=== PATIENT | male | born 1940 | race Caucasian/White ===

== ENCOUNTER 2017-09-23 13:06 | Emergency (ER) | payer MEDICARE, BC ==
[~2017-09-23] VITALS: Ht 177.8 cm; Wt 99.8 kg
[2017-09-23 13:03] VITALS: BP 180/100
[2017-09-23] MEDS ORDERED: Bacitracin Oint UD TOPIC ONE (14:15)
[2017-09-23] MEDS ORDERED: IBUPROFEN600 MG ORAL (14:17)
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
[2017-09-23 14:30] VITALS: BP 181/102
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
== END 2017-09-23 14:30 | disposition home or self-care (01) ==
LOC: EDBD 13:06 → EMR 13:39
DX: S80.12XA Contusion of left lower leg, initial encounter (principal); S80.11XA Contusion of right lower leg, initial encounter; S80.811A Abrasion, right lower leg, initial encounter; S50.312A Abrasion of left elbow, initial encounter; S80.812A Abrasion, left lower leg, initial encounter; V09.9XXA Pedestrian injured in unspecified transport accident, initial encounter; Y92.414 Local residential or business street as the place of occurrence of the external cause; I10 Essential (primary) hypertension
CPT/HCPCS: 99283

== ENCOUNTER 2017-10-03 10:08 | Emergency (ER) | payer MEDICARE, BC ==
[~2017-10-03] VITALS: Ht 175.3 cm; Wt 111.1 kg
[~2017-10-03 10:08] MED LIST: IBUPROFEN600 MG ORAL
[2017-10-03] MEDS ORDERED: BENICAR HCT 401 EAC1 ORAL (10:31)
--- NOTE | 2017-10-03 11:00 | Emergency Room Report ---
History of Present Illness General Chief Complaint: Lower Extremity Injury Source: Patient Present Illness HPI Patient had an injury about 10 days ago was seen here Since then the patient has been following up with his primary physician and physical therapy Earlier today the patient noticed some clear discharge from the right lower leg wound And presents for evaluation Patient has had a blister in the region over the past 7 days The left leg blister had burst initially However the blister on the right side it persisted Patient has been having physical therapy with movement of his legs denies any pain to the calf He has some minimal discomfort however he reports that throughout the [place] activity he feels improved Denies any fevers or chills The liquid appeared to be clear mild yellowish tinge denies any pus Allergies: Coded Allergies: No Known Allergies (Unverified , 09/23/17) Patient History Past Medical History: see triage record Pertinent Family History: none Reviewed Nursing Documentation: PMH: Agreed, PSxH: Agreed Nursing Documentation-PMH Hx Hypertension: Yes Review of Systems All Other Systems: negative except mentioned in HPI Physical Exam Vital Signs Date Time Temp Pulse Resp B/P (MAP) Pulse Ox O2 Delivery O2 Flow Rate FiO2 10/03/17 10:25 97.3 76 18 121/80 97 Room Air Sp02 EP Interpretation: reviewed, normal General Appearance: well appearing, no apparent distress Head: normocephalic, atraumatic Eyes: bilateral eye PERRL, bilateral eye EOMI ENT: normal pharynx Neck: supple, thyroid normal Respiratory: lungs clear Cardiovascular #1: regular rate, rhythm Gastrointestinal: non tender, soft Musculoskeletal: non-tender - Patient does not reveal signs of compartment syndrome, other - Patient able to flex and extend at both feet with no signs of obstruction good pulses distally Neurologic: alert, oriented x3, responsive Skin: other - Patient has obvious ecchymosis and bruising to both lower leg, the left leg shows central opening of the skin that is healing secondarily with scab formation mild surrounding erythema, on the right lower extremity anteriorly in the mid tibial region approximately 1.5 x 1.5 blister formation is appreciated. There is some minimal serosanguineous discharge from the inferior aspect. Along with mild surrounding erythema Medical Decision Making Diagnostic Impression: Primary Impression: Cellulitis Additional Impression: Blister ER Course The area appears to be in line with a healing wound patient has been seen physical therapy The discharge appears to be in line with the blister likely resolving Given the erythema however I did discuss with the patient regarding possible inpatient hospitalization and antibiotics He feels that the area has improved since previous and we will go head and trial oral antibiotic Patient's main reason for presentation was a small discharge from the blister which appears to be in line with appropriate pathophysiology And the patient will have close followup Last Vital Signs Date Time Temp Pulse Resp B/P (MAP) Pulse Ox O2 Delivery O2 Flow Rate FiO2 10/03/17 10:25 97.3 76 18 121/80 97 Room Air Status: unchanged Disposition: HOME, SELF-CARE Condition: Stable Additional Instructions: Patient is provided with the discharge instructions notified to follow up with primary doctor in the next 2-3 days otherwise return to the er with any worsening symptoms. Please note that this report is being documented using [employer] technology. This can lead to erroneous entry secondary to incorrect interpretation by the dictating instrument. CELESTINA FIGUEROA D.O. Oct 03, 2017 11:00
[2017-10-03] MEDS ORDERED: KEFLEX500 MG ORAL (11:01)
[2017-10-03 11:20] VITALS: BP 117/85
== END 2017-10-03 11:20 | disposition home or self-care (01) ==
LOC: EMR 10:30
DX: L03.116 Cellulitis of left lower limb (principal); L03.115 Cellulitis of right lower limb; S80.821A Blister (nonthermal), right lower leg, initial encounter; I10 Essential (primary) hypertension
CPT/HCPCS: 99283